=== PATIENT | female | born 1990 | race Caucasian/White ===

== ENCOUNTER 2016-04-13 10:51 | Emergency (ER) | payer MEDICAID ==
[~2016-04-13 10:51] MED LIST: AMOXICILLIN875 MG PO; ARTANE 2MG2 MG PO; BACTRIM DS TAB1 EACH PO; CARDIZEM30 MG PO; CELEBREX; CELEBREX200 MG PO; CEPHALEXIN500 M1 PO; CITALOPRAM10 MG PO; CLONAZEPAM0.5 MG PO; CODEINE-GUAIFE120 ML PO; CORTISPORIN 1% OT; DELTASONE20 M1 PO; DIFLUCAN150 M1 PO; FISH OIL500 M1 PO; FLONASE ALLERG9.9 ML NS; FLOVENT HFA12 G1 IH; GEODON60 MG PO; GEODON80 M1 PO; IPRATROPIUM BROM3 M1 IH; KLONOPIN0.5 M1 PO; METFORMIN HYDRO1 POW PO; METRONIDAZOLE500 M1 PO; NEXPLANON68 MG ID; NYSTATIN CREAM15 GM TP; NYSTATIN POWDER30 GM PO; OMEPRAZOLE20 MG PO; OTC SINUS MEDICATION; PRAZOSIN HCL1 MG PO; PULMICORT0.5 MG/2 M IH; PULMICORT90 MCG/Ac1 IH; RT ADVAIR IH; SEROQUEL XR400 MG PO; STADOL NASA25 MG/BOT NS; SYNTHROID0.1 MG/TAB PO; ULTRAM50 M1 PO; VIIBRYD40 MG PO; VIT D3 PO; ZITHROMAX 250M250 MG PO; ZOCOR40 M1 PO
[2016-04-13] MEDS ORDERED: IBU800 M1 PO (12:04)
== END 2016-04-13 12:11 | disposition home or self-care (01) ==
LOC: ED 10:51
DX: M25.531 Pain in right wrist (principal); M67.431 Ganglion, right wrist

== ENCOUNTER 2016-05-03 17:41 | Emergency (ER) | payer MEDICAID ==
[~2016-05-03 17:41] MED LIST changes: +IBU800 M1 PO
== END 2016-05-03 18:05 | disposition home or self-care (01) ==
LOC: ED 17:41
DX: N94.6 Dysmenorrhea, unspecified (principal)

== ENCOUNTER 2017-01-12 20:53 | Emergency (ER) | payer MEDICAID ==
[~2017-01-12] VITALS: Ht 162.6 cm; Wt 113.6 kg
[2017-01-12] MEDS ORDERED: LATUDA40 MG PO (21:08)
[2017-01-12 22:33] VITALS: BP 146/87
== END 2017-01-12 22:33 | disposition home or self-care (01) ==
LOC: ED 20:53
DX: S46.911A Strain of unspecified muscle, fascia and tendon at shoulder and upper arm level, right arm, initial encounter (principal); W01.198A Fall on same level from slipping, tripping and stumbling with subsequent striking against other object, initial encounter; Y92.008 Other place in unspecified non-institutional (private) residence as the place of occurrence of the external cause; F31.9 Bipolar disorder, unspecified; F15.11 Other stimulant abuse, in remission; F17.200 Nicotine dependence, unspecified, uncomplicated
CPT/HCPCS: A4565

== ENCOUNTER 2018-10-18 19:26 | Emergency (ER) | payer MEDICAID ==
[~2018-10-18] VITALS: Ht 162.6 cm; Wt 100.0 kg
[~2018-10-18 19:26] MED LIST changes: +CLARITIN 1010 MG/TAB PO; +LATUDA40 MG PO; +PROAIR HFA0.09 MG/AC IH
[2018-10-18] MEDS ORDERED: KLONOPIN 0.5MG0.5 MG PO (20:15)
[2018-10-18] MEDS ORDERED: FANAPT1 MG PO (20:16)
[2018-10-18 20:25] LABS: EOS # 0.3 (0.04-0.40); EOS % 1.7 % (1.0-5.0); HEMATOCRIT 38.8 % (37.0-47.0); HEMOGLOBIN 12.9 g/dL (12.5-16.0); LYMPH# 3.2 (1.50-4.00); MEAN CELL VOLUME 87 fl (78-100); MEAN CORPUSCULAR HEMOGLOBIN 29 pg (27-31); MEAN CORPUSCULAR HGB CONC 33 g/dL (33-37); MEAN PLATELET VOLUME 9.4 fl (7.4-10.4); MONO # 1.1 (0.20-0.80); PLATELET COUNT 313 K/mm3 (130-400); RED BLOOD COUNT 4.44 M/mm3 (4.10-5.30); WHITE BLOOD COUNT 15.8 K/mm3 (4.8-10.8)
[2018-10-18 20:31] LABS: ALBUMIN 3.3 g/dL (3.5-5.0)
[2018-10-18 20:32] LABS: POTASSIUM 3.5 mmol/L (3.5-5.1)
[2018-10-18 20:33] LABS: CALCIUM 9.3 mg/dL (8.3-10.5)
[2018-10-18 20:34] LABS: TOTAL PROTEIN 7.9 g/dL (6.4-8.3)
[2018-10-18 20:36] LABS: TOTAL BILIRUBIN 0.3 mg/dL (0.2-1.2)
[2018-10-18 20:38] LABS: NEU # 11.2 (1.40-6.50)
[2018-10-18] MEDS ORDERED: BACTRIM DS TAB1 EACH PO (21:48)
[2018-10-18 22:10] VITALS: BP 95/63
== END 2018-10-18 22:10 | disposition home or self-care (01) ==
LOC: ED 19:26
PROVIDERS: Nurse Practitioner Family
DX: S01.91XA Laceration without foreign body of unspecified part of head, initial encounter (principal); L08.9 Local infection of the skin and subcutaneous tissue, unspecified; S16.1XXA Strain of muscle, fascia and tendon at neck level, initial encounter; H05.221 Edema of right orbit; J44.9 Chronic obstructive pulmonary disease, unspecified; F41.9 Anxiety disorder, unspecified; F43.10 Post-traumatic stress disorder, unspecified; F20.9 Schizophrenia, unspecified; F31.9 Bipolar disorder, unspecified; F17.210 Nicotine dependence, cigarettes, uncomplicated; V89.2XXA Person injured in unspecified motor-vehicle accident, traffic, initial encounter
CPT/HCPCS: J0696

== ENCOUNTER 2019-02-03 22:09 | Emergency (ER) | payer MEDICAID ==
[~2019-02-03 22:09] MED LIST changes: +FANAPT1 MG PO; +KLONOPIN 0.5MG0.5 MG PO
[2019-02-03] MEDS ORDERED: AZITHROMYCIN 250MGPK PO (22:52)
[2019-02-03] MEDS ORDERED: PREDNISONE20 M1 PO (22:52)
[2019-02-03] MEDS ORDERED: PROAIR HFA0.09 MG/AC IH (22:54)
[2019-02-03 23:00] VITALS: BP 125/74
== END 2019-02-03 23:00 | disposition home or self-care (01) ==
LOC: ED 22:09
DX: J40 Bronchitis, not specified as acute or chronic (principal); J44.9 Chronic obstructive pulmonary disease, unspecified; F41.9 Anxiety disorder, unspecified; F31.9 Bipolar disorder, unspecified; F43.10 Post-traumatic stress disorder, unspecified; F25.9 Schizoaffective disorder, unspecified; F17.210 Nicotine dependence, cigarettes, uncomplicated
CPT/HCPCS: J7512